=== PATIENT | female | born 1995 | race Two or more races ===

== ENCOUNTER 2018-08-15 08:05 | Inpatient (IN) | payer OTHER ==
[~2018-08-15] VITALS: Ht 167.6 cm; Wt 80.7 kg
[2018-08-16] MEDS ORDERED: PRENATAL TABLE1 EACH PO (11:52)
[2018-08-16] MEDS ORDERED: SYNTHROID75 MCG PO (11:53)
== END 2018-08-17 12:40 | disposition home or self-care (01) | DRG 807 ==
LOC: OB/GYN 08:05 → LDR 08:05 → OB/GYN 13:41
PROVIDERS: ADMIT Specialist
PROC: 10E0XZZ Delivery of Products of Conception, External Approach (ICD-10-PCS; principal; 2018-08-15)
PROC: 4A1HXCZ Monitoring of Products of Conception, Cardiac Rate, External Approach (ICD-10-PCS; 2018-08-15)
PROC: 0KQM0ZZ Repair Perineum Muscle, Open Approach (ICD-10-PCS; 2018-08-15)
PROC: 0W8NXZZ Division of Female Perineum, External Approach (ICD-10-PCS; 2018-08-15)
PROC: 4A033R1 Measurement of Arterial Saturation, Peripheral, Percutaneous Approach (ICD-10-PCS; 2018-08-15)
DX: O70.1 Second degree perineal laceration during delivery (principal); Z37.0 Single live birth; Z22.330 Carrier of Group B streptococcus; Z3A.37 37 weeks gestation of pregnancy

== ENCOUNTER 2021-05-12 09:45 | Emergency (ER) | payer OTHER ==
[~2021-05-12] VITALS: Ht 167.6 cm; Wt 69.4 kg
[~2021-05-12 09:45] MED LIST: PRENATAL TABLE1 EACH PO; SYNTHROID75 MCG PO
[2021-05-12] MEDS ORDERED: CELEBREX100 MG PO (16:58)
[2021-05-12] MEDS ORDERED: INTESTINEX680 M1 PO (16:58)
[2021-05-12] MEDS ORDERED: LEVSIN/SL0.125 MG PO (16:58)
== END 2021-05-12 17:29 ==
LOC: ER 09:45
DX: N83.202 Unspecified ovarian cyst, left side (principal); K52.89 Other specified noninfective gastroenteritis and colitis

== ENCOUNTER 2021-11-04 12:51 | Emergency (ER) | payer OTHER ==
[~2021-11-04] VITALS: Ht 167.6 cm; Wt 70.8 kg
[~2021-11-04 12:51] MED LIST changes: +CELEBREX100 MG PO; +INTESTINEX680 M1 PO; +LEVSIN/SL0.125 MG PO
== END 2021-11-04 17:05 | disposition home or self-care (01) ==
LOC: ER 12:51
DX: O23.41 Unspecified infection of urinary tract in pregnancy, first trimester (principal); N39.0 Urinary tract infection, site not specified; Z3A.08 8 weeks gestation of pregnancy; Z20.822 Contact with and (suspected) exposure to COVID-19; Z91.013 Allergy to seafood

== ENCOUNTER 2021-11-16 14:26 | Emergency (ER) | payer OTHER ==
[~2021-11-16] VITALS: Ht 167.6 cm; Wt 71.7 kg
[2021-11-16] MEDS ORDERED: CEFADROXIL500 MG PO (20:03)
== END 2021-11-16 20:36 | disposition home or self-care (01) ==
LOC: ER 14:26
DX: O23.41 Unspecified infection of urinary tract in pregnancy, first trimester (principal); N39.0 Urinary tract infection, site not specified; Z3A.10 10 weeks gestation of pregnancy; R51.9 Headache, unspecified; Z91.013 Allergy to seafood

== ENCOUNTER 2022-02-13 20:39 | Emergency (ER) | payer OTHER ==
[~2022-02-13] VITALS: Ht 167.6 cm; Wt 79.8 kg
[~2022-02-13 20:39] MED LIST changes: +CEFADROXIL500 MG PO
[2022-02-14] MEDS ORDERED: ZYRTEC10 MG PO (01:57)
== END 2022-02-14 02:06 ==
LOC: ER 20:39
DX: O98.512 Other viral diseases complicating pregnancy, second trimester (principal); Z3A.23 23 weeks gestation of pregnancy; B34.9 Viral infection, unspecified; Z20.822 Contact with and (suspected) exposure to COVID-19; Z91.013 Allergy to seafood

== ENCOUNTER 2022-05-12 16:36 | Inpatient (IN) | payer OTHER ==
[~2022-05-12] VITALS: Ht 167.6 cm; Wt 90.7 kg
[~2022-05-12 16:36] MED LIST changes: +ZYRTEC10 MG PO
[2022-05-12] MEDS ORDERED: PRENATAL + DHA1 EAC1 PO (18:57)
[2022-05-12] MEDS ORDERED: SYNTHROID100 MCG PO (18:58)
[2022-05-12] MEDS ORDERED: NIFEDIPINE20 MG PO (18:58)
== END 2022-05-16 17:34 | disposition home or self-care (01) | DRG 833 ==
LOC: OBS/DEL 16:36 → LDR 05-13 16:07
PROVIDERS: ADMIT Obstetrics & Gynecology Obstetrics; ATTEND Obstetrics & Gynecology Obstetrics
PROC: BY4FZZZ Ultrasonography of Third Trimester, Single Fetus (ICD-10-PCS; 2022-05-12)
PROC: 4A1HXCZ Monitoring of Products of Conception, Cardiac Rate, External Approach (ICD-10-PCS; principal; 2022-05-13)
DX: O14.03 Mild to moderate pre-eclampsia, third trimester (principal); Z3A.28 28 weeks gestation of pregnancy; Z20.822 Contact with and (suspected) exposure to COVID-19

== ENCOUNTER 2024-09-20 22:59 | Emergency (ER) | payer OTHER ==
[~2024-09-20] VITALS: Ht 167.6 cm; Wt 71.7 kg
[~2024-09-20 22:59] MED LIST changes: +CIPRO500 MG PO; +FLAGYL375 MG PO; +LEVSIN/SL0.125 MG SL; +NIFEDIPINE20 MG PO; +PEPCID AC20 MG PO; +PRENATAL + DHA1 EAC1 PO; +PROBIOTIC1 EAC4 PO; +SYNTHROID100 MCG PO
[2024-09-21] MEDS ORDERED: METOCLOPRAMIDE HCL 5 MG/ML VIAL IM STA (01:23)
[2024-09-21] MEDS ORDERED: KETOROLAC TROMETHAMINE 60 MG VIAL IM STA (01:23)
[2024-09-21] MEDS ORDERED: KETOROLAC TROMETHAMINE 60 MG VIAL IM ONE (01:32)
[2024-09-21] MEDS ORDERED: METOCLOPRAMIDE HCL 5 MG/ML VIAL ONE (01:33)
[2024-09-21 02:21] LABS: HEMATOCRIT 39.9 % (36.0-45.00); HEMOGLOBIN 13.4 g/dL (12.0-15.00); MEAN CELL VOLUME 91.8 fL (80.00-100.00); MEAN CORPUSCULAR HEMOGLOBIN 30.9 pg (27.00-32.0); MEAN CORPUSCULAR HGB CONC 33.7 g/dl (32.0-36.0); PLATELET COUNT 218 K/uL (150-450); RED BLOOD COUNT 4.35 M/uL (4.00-6.00); RED CELL DISTRIBUTION WIDTH 12.6 % (11.5-14.5)
[2024-09-21 03:22] LABS: PH,URINE 6.5 (5.0-8.0); URINE APPEARANCE Clear; URINE BILIRRUBIN Negative (NEGATIVE); URINE BLOOD Negative; URINE COLOR Yellow; URINE GLUCOSE Negative (NEGATIVE); URINE KETONE Trace (NEGATIVE); URINE LEUKOCYTE Negative; URINE NITRATE Negative; URINE PROTEIN Trace (NEGATIVE)
[2024-09-21 03:25] LABS: URINE BACTERIA 238.6 uL (0.0-1933); URINE EPITHELIAL CELLS 15.1 uL (0.0-38.8); URINE RBC 20.1 uL (0.0-20.8); URINE WBC 4.4 uL (0.0-23.2)
[2024-09-21 03:26] LABS: URINE CAST 0.29 uL (0.0-1.40)
== END 2024-09-21 03:42 | disposition home or self-care (01) ==
LOC: ER 23:01 → EMR PED 23:29
DX: R30.0 Dysuria (principal); R12 Heartburn

== ENCOUNTER 2025-04-16 20:47 | Emergency (ER) | payer OTHER ==
[~2025-04-16] VITALS: Ht 165.1 cm; Wt 68.0 kg
[2025-04-16 21:02] VITALS: BP 129/83; O2SAT 99
[2025-04-16] MEDS ORDERED: KETOROLAC TROMETHAMINE 60 MG VIAL IM ONE ×2 (21:15→21:26)
[2025-04-16] MEDS ORDERED: ORPHENADRINE CITRATE 30 MG/ML AMPUL IM ONE (21:15)
[2025-04-16] MEDS ORDERED: ORPHENADRINE CITRATE 30 MG/ML AMPUL ONE (21:26)
[2025-04-16] MEDS ORDERED: KETO10TA2 PO (22:25)
== END 2025-04-16 22:37 | disposition home or self-care (01) ==
LOC: ER 20:47
DX: M79.641 Pain in right hand (principal)